=== PATIENT | male | born 2005 | race Caucasian/White ===

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

== ENCOUNTER 2023-09-20 17:10 | Emergency (ER) | payer MEDICAID ==
[~2023-09-20] VITALS: Ht 193 cm; Wt 59.1 kg
[2023-09-20 17:46] LABS: BASOPHILS % (AUTO) 0.8 % (0-1); EOSINOPHILS % (AUTO) 0.7 % (0-6); HEMATOCRIT 45.8 % (42.0-52.0); HEMOGLOBIN 16.3 g/dl (14.0-17.9); LYMPHOCYTES # (AUTO) 1.7 X10'3 (1.1-4.8); LYMPHOCYTES % (AUTO) 26.3 % (21-51); MEAN CORPUSCULAR HEMOGLOBIN 30.7 PG (27.0-31.0); MEAN CORPUSCULAR HGB CONC 35.7 g/dL (33.0-36.5); MEAN CORPUSCULAR VOLUME 86.2 FL (78-98); MEAN PLATELET VOLUME 7.8 FL (7.4-10.4); MONOCYTES # (AUTO) 0.5 X10'3 (0-0.9); MONOCYTES % (AUTO) 8.4 % (2-12); NEUTROPHILS # (AUTO) 4.1 X10'3 (1.8-7.7); NEUTROPHILS % (AUTO) 63.8 % (42-75); PLATELET COUNT 252 X10'3 (140-440); RED BLOOD COUNT 5.31 X10'6 (4.70-6.10); RED CELL DISTRIBUTION WIDTH 12.7 % (11.5-14.5); WHITE BLOOD COUNT 6.4 X10'3 (4.5-11.0)
[2023-09-20 18:11] LABS: ALBUMIN 3.9 G/DL (3.4-5.0); ANION GAP 13 (8-16); BLOOD UREA NITROGEN 10 MG/DL (7-18); BUN/CREATININE RATIO 10.1 (10.0-20.0); CALCIUM 9.1 MG/DL (8.5-10.1); CHLORIDE 106 MMOL/L (99-107); CREATININE 0.99 MG/DL (0.60-1.10); GLUCOSE 93 MG/DL (70-104); POTASSIUM 3.3 MMOL/L (3.5-5.1); PRO BRAIN NATRIURETIC PEPTIDE < 30 PG/ML (0-125); SODIUM 140 MMOL/L (135-145); TOTAL CARBON DIOXIDE 21.2 MMOL/L (24-32); eCRCL 99 ML/MIN; eGFR > 90 ML/MIN
[2023-09-20 18:38] VITALS: BP 107/84; PULSE 95; RESP 18; TEMP 98.6; O2SAT 94
== END 2023-09-20 18:40 | disposition home or self-care (01) ==
LOC: ER 17:11
DX: R00.2 Palpitations (principal); F12.90 Cannabis use, unspecified, uncomplicated; Z88.0 Allergy status to penicillin; Z88.8 Allergy status to other drugs, medicaments and biological substances; Z79.899 Other long term (current) drug therapy; Z79.2 Long term (current) use of antibiotics; Z79.1 Long term (current) use of non-steroidal anti-inflammatories (NSAID); Z72.89 Other problems related to lifestyle
CPT/HCPCS: 71045; 80048; 83880; 84484; 85025; 93005; 99285

== ENCOUNTER 2023-11-13 16:59 | Emergency (ER) | payer MEDICAID ==
[~2023-11-13] VITALS: Ht 190.5 cm; Wt 59.1 kg
[2023-11-13 17:35] LABS: BASOPHILS % (AUTO) 0.7 % (0-1); EOSINOPHILS # (AUTO) 0.1 X10'3 (0-0.9); EOSINOPHILS % (AUTO) 0.9 % (0-6); HEMOGLOBIN 16.5 g/dl (14.0-17.9); LYMPHOCYTES # (AUTO) 2.6 X10'3 (1.1-4.8); LYMPHOCYTES % (AUTO) 42.9 % (21-51); MEAN CORPUSCULAR HEMOGLOBIN 30.3 PG (27.0-31.0); MEAN CORPUSCULAR HGB CONC 34.5 g/dL (33.0-36.5); MEAN CORPUSCULAR VOLUME 87.8 FL (78-98); MEAN PLATELET VOLUME 8.4 FL (7.4-10.4); MONOCYTES # (AUTO) 0.6 X10'3 (0-0.9); MONOCYTES % (AUTO) 9.8 % (2-12); NEUTROPHILS # (AUTO) 2.7 X10'3 (1.8-7.7); NEUTROPHILS % (AUTO) 45.7 % (42-75); PLATELET COUNT 270 X10'3 (140-440); RED BLOOD COUNT 5.47 X10'6 (4.70-6.10); RED CELL DISTRIBUTION WIDTH 12.5 % (11.5-14.5)
[2023-11-13 17:59] LABS: ALBUMIN 4.2 G/DL (3.4-5.0); ANION GAP 11 (8-16); BLOOD UREA NITROGEN 7 MG/DL (7-18); BUN/CREATININE RATIO 7.8 (10.0-20.0); CHLORIDE 105 MMOL/L (99-107); GLUCOSE 90 MG/DL (70-104); POTASSIUM 3.5 MMOL/L (3.5-5.1); PRO BRAIN NATRIURETIC PEPTIDE < 30 PG/ML (0-125); SODIUM 140 MMOL/L (135-145); eCRCL 109 ML/MIN; eGFR > 90 ML/MIN
[2023-11-13] MEDS: LORazepam 1 MG tablet PO ONE (18:17)
[2023-11-13 18:27] VITALS: PULSE 88
[2023-11-13 19:12] VITALS: BP 106/89; RESP 15; TEMP 97.3; O2SAT 99
== END 2023-11-13 19:17 | disposition home or self-care (01) ==
LOC: ER 16:59
DX: R00.2 Palpitations (principal); R07.89 Other chest pain; F41.9 Anxiety disorder, unspecified; F12.90 Cannabis use, unspecified, uncomplicated; Z88.6 Allergy status to analgesic agent; Z88.0 Allergy status to penicillin; Z79.2 Long term (current) use of antibiotics; Z79.1 Long term (current) use of non-steroidal anti-inflammatories (NSAID); Z79.899 Other long term (current) drug therapy
CPT/HCPCS: 36415; 71045; 80048; 83880; 84484; 85025; 93005; 99285; J7030

== ENCOUNTER 2024-11-08 12:39 | Emergency (ER) | payer MEDICAID ==
[~2024-11-08] VITALS: Ht 193 cm; Wt 63.7 kg
[2024-11-08 14:09] LABS: MEAN PLATELET VOLUME 7.4 FL (7.4-10.4); RED CELL DISTRIBUTION WIDTH 13.4 % (11.5-14.5)
[2024-11-08 14:13] LABS: CREATININE 0.85 MG/DL (0.60-1.10); TOTAL CARBON DIOXIDE 25.9 MMOL/L (24-32); eCRCL 124 ML/MIN; eGFR > 90 ML/MIN
[2024-11-08] MEDS: normal saline 1000ml 1,000 ML IV STA (15:51)
[2024-11-08] MEDS: diazepam inj 5 MG/ML inj. IV STA (15:51)
[2024-11-08] MEDS ORDERED: CHLO25CA10 PO (16:47)
--- NOTE | 2024-11-08 16:49 | Physician Documentation ---
History of Present Illness ~ Chief Complaint: ETOH Withdrawl Stated Complaint: ALCOHOL WITHDRAWAL Time Seen by MD: 13:57 Primary Medical Doctor: NONE Mode of Arrival: POV, Ambulatory HPI Patient is seen today with complaints of alcohol withdrawal stating his last drink was yesterday. Patient states he drinks about a pt of vodka daily and has been trying to taper down over the last few days. Patient presents today complaining of shaking as well as significant amount of sensation of anxiety in his chest. Patient denies any seizures or seizure history. He states he has been nauseous and vomiting and has no other concern or complaint at this time. Tetanus within 5 years?: Yes Medication Reconciliation Allergies: Coded Allergies: acetaminophen (Verified Allergy, Intermediate, "fever goes up", 11/13/23) Penicillins (Verified Allergy, Unknown, 11/13/23) Scheduled Cephalexin Monohydrate* (Keflex*), 500 MG PO BID Fluticasone Propionate (Flonase), 16 GM NS BID Ibuprofen 100MG/5ML Susp* (Motrin 100 MG/5ML Susp.*), 15 ML PO Q6H Ondansetron Hcl (Zofran), 1 TAB PO Q6H Scheduled PRN Chlordiazepoxide Hcl (Librium), 2 CAP PO Q4H PRN for anxiety Lorazepam (Ativan), 1 TAB PO Q8H PRN for for anxiety/agitation Past Medical History Past Medical History: No Pertinent History Past Surgical History: no surgical history Smoking Status: Current every day smoker Alcohol Use: Occasionally Drug Use: marijuana Lives with: Family Lives In: Home Occupation: child Review of Systems Constitutional: Denies: chills, fever, weakness Eyes: Denies: pain, blurred vision ENT: Denies: ear pain, nose pain, throat pain, mouth pain Respiratory: Denies: cough, shortness of breath Cardiovascular: Denies: chest pain, palpitations Gastrointestinal: Denies: abdominal pain, nausea, vomiting Genitourinary: Denies: burning, dysuria Male Genitalia: Denies: penile discharge, testicular pain Neurological: Denies: headache, dizziness Musculoskeletal: Denies: pain, swelling Integumentary: Denies: rash, lesions Allergic/Immunologic: Denies: hives, itching Hematologic/Lymphatic: Denies: no symptoms reported Psychiatric: Denies: depression, anxiety Physical Exam Vital Signs: Temperature: 97.6, Source: Oral, Heart Rate: 96, Respiratory Rate: 16, BP: 119/66, Pulse Oximetry: 96, Weight: 63.700 Oxygen Flow Rate: 0 Physical Exam General: Awake and Alert, no acute distress. Patient does have resting tremor. HEENT: Conjunctiva pink, Sclera clear, Mucus Membranes moist. Neck: Supple without masses and tenderness. Resp: Unlabored. Lungs clear to auscultation bilaterally. Heart: Regular Rate and rhythm, normal S1 and S2 without murmur, rub or gallop. Abdomen: Soft and non tender no organomegaly Extremities: No cyanosis,clubbing or edema. Skin: Warm and Dry. Progress Results/Orders Results/Orders Orders - PABLO PEREZ PAC Saline Lock (11/08/24 ) Completed Orders - PABLO PEREZ PAC Ethanol (11/08/24 14:21) Normal Saline 1000ml (0.9% Sodium Chlori (11/08/24 14:29) Diazepam Inj (Valium Inj) (11/08/24 14:29) Prochlorperazine Inj (Compazine Inj) (11/08/24 14:29) Medications Received in ER Medications (Trade) Dose Ordered Sig/Tae Route PRN Reason Start Time Stop Time Status Last Admin Dose Admin Sodium Chloride 1,000 ml @ 1,000 mls/hr ONCE STAT IV 11/08/24 14:29 11/08/24 15:28 DC 11/08/24 15:51 1,000 MLS/HR (Valium inj) 10 mg ONCE STAT IV 11/08/24 14:29 11/08/24 14:43 DC 11/08/24 15:51 10 MG (Compazine inj) 10 mg ONCE STAT IV 11/08/24 14:29 11/08/24 14:43 DC 11/08/24 15:51 10 MG Vital Signs 11/08/24 11/08/24 11/08/24 11/08/24 13:01 14:55 15:14 16:56 Temp 97.6 97.6 Pulse 97 96 96 Resp 18 16 16 16 B/P (MAP) 119/66 145/99 (114) Pulse Ox 97 96 94 O2 Flow Rate 0 0 11/08/24 17:05 Temp 97.6 B/P (MAP) Laboratory Tests Test 11/08/24 13:16 White Blood Count 10.5 Red Blood Count 4.96 Hemoglobin 16.6 Hematocrit 47.0 Mean Corpuscular Volume 94.7 Mean Corpuscular Hemoglobin 33.5 H Mean Corpuscular Hemoglobin Concent 35.4 Red Cell Distribution Width 13.4 Platelet Count 280 Mean Platelet Volume 7.4 Neutrophils (%) (Auto) 80.3 H Lymphocytes (%) (Auto) 9.1 L Monocytes (%) (Auto) 9.9 Eosinophils (%) (Auto) 0.1 Basophils (%) (Auto) 0.6 Neutrophils # (Auto) 8.4 H Lymphocytes # (Auto) 1.0 L Monocytes # (Auto) 1.0 H Eosinophils # (Auto) 0.0 Basophils # (Auto) 0.1 CBC Comment Sodium Level 139 Potassium Level 3.7 Chloride Level 103 Carbon Dioxide Level 25.9 Anion Gap 10 Blood Urea Nitrogen 6 L Creatinine 0.85 Estimated GFR/1.73 m2 > 90 BUN/Creatinine Ratio 7.1 L Glucose Level 89 Calcium Level 9.1 Total Bilirubin 2.0 H Aspartate Amino Transf (AST/SGOT) 99 H Alanine Aminotransferase (ALT/SGPT) 158 H Alkaline Phosphatase 103 Total Protein 7.8 Albumin 4.4 Globulin 3.4 Albumin/Globulin Ratio 1.3 Lipase 25 Chemistry Comments Ethyl Alcohol Level < 10 Medical Decision Making Findings Patient is seen today with complaints of alcohol withdrawal stating his last drink was yesterday. Patient states he drinks about a pt of vodka daily and has been trying to taper down over the last few days. Patient presents today complaining of shaking as well as significant amount of sensation of anxiety in his chest. Patient denies any seizures or seizure history. He states he has been nauseous and vomiting and has no other concern or complaint at this time. Patient was given L of fluid IV, Compazine 10 mg IV, Valium 10 mg IV and patient states he is feeling quite a bit better. Patient declines admission at this time. Patient was given prescription for Librium taper to be taken as directed. Patient will follow up with primary care in 3-5 days if no better as needed sooner. Return to ED with any worsening, concerning or changing symptoms. I strongly advised patient begin 12 step program and or intensive outpatient or inpatient rehabilitation program. Departure Disposition: HOME / SELF CARE / HOMELESS Impression: Primary Impression: Alcohol withdrawal syndrome Qualified Codes: F10.930 - Alcohol use, unspecified with withdrawal, uncomplicated Condition: Improved Discharge Instructions: Delirium Tremens, [id number] Additional Instructions: Patient was given L of fluid IV, Compazine 10 mg IV, Valium 10 mg IV and patient states he is feeling quite a bit better. Patient declines admission at this time. Patient was given prescription for Librium taper to be taken as directed. Patient will follow up with primary care in 3-5 days if no better as needed sooner. Return to ED with any worsening, concerning or changing symptoms. I strongly advised patient begin 12 step program and or intensive outpatient or inpatient rehabilitation program. Referrals: NO PRIMARY CARE PROVIDER (PCP) Prescriptions Chlordiazepoxide Hcl (Librium) 25 Mg Capsule 2 CAP PO Q4H PRN for anxiety for 5 Days, #24 CAP 0 Refills Prov: PABLO PEREZ PAC 11/08/24 Chlordiazepoxide Hcl (Librium) 25 Mg Capsule 2 CAP PO Q4H PRN for anxiety for 5 Days, #24 CAP 0 Refills Prov: PABLO PEREZ 11/08/24 Additional Comment Additional Comment Patient refused admission at this time. Signature Scribe Signature: No scribe Attestation: No scribe PABLO PEREZ PAC Nov 08, 2024 16:49
[2024-11-08 16:56] VITALS: BP 145/99; PULSE 96; RESP 16; O2SAT 94
[2024-11-08 17:05] VITALS: TEMP 97.6
== END 2024-11-08 17:06 | disposition home or self-care (01) ==
LOC: ER 12:39
DX: F10.239 Alcohol dependence with withdrawal, unspecified (principal); F12.90 Cannabis use, unspecified, uncomplicated; F17.200 Nicotine dependence, unspecified, uncomplicated; Z88.0 Allergy status to penicillin; Z88.8 Allergy status to other drugs, medicaments and biological substances; Y90.9 Presence of alcohol in blood, level not specified
CPT/HCPCS: 36415; 80053; 80320; 83690; 85025; 96374; 96375; 99284; J0780; J3360; J7030

== ENCOUNTER 2025-03-04 07:22 | Inpatient (IN) | payer MEDICAID ==
[~2025-03-04] VITALS: Ht 193 cm; Wt 56.8 kg
[~2025-03-04 07:22] MED LIST changes: +CHLO25CA10 PO
--- NOTE | 2025-03-04 07:49 | Physician Documentation ---
History of Present Illness ~ Chief Complaint: ETOH Withdrawl Stated Complaint: ALCOHOL WITHDRAWAL Time Seen by MD: 07:36 Primary Medical Doctor: NONE HPI Patient is seen today with complaints of alcohol withdrawal stating his last drink was about 1:00 a.m. this morning. Patient states he drinks about a pt of distilled spirits daily. Patient presents today complaining of shaking as well as significant amount of sensation of anxiety in his chest. Patient denies any seizures or seizure history. He states he has been nauseous and vomited yesterday and has no other concern or complaint at this time. Tetanus within 5 years?: Yes Medication Reconciliation Allergies: Coded Allergies: acetaminophen (Verified Allergy, Intermediate, "fever goes up", 03/04/25) Penicillins (Verified Allergy, Unknown, 03/04/25) Uncoded Allergies: SULFA (Allergy, Unknown, 03/04/25) Scheduled Cephalexin Monohydrate* (Keflex*), 500 MG PO BID Fluticasone Propionate (Flonase), 16 GM NS BID Ibuprofen 100MG/5ML Susp* (Motrin 100 MG/5ML Susp.*), 15 ML PO Q6H Ondansetron Hcl (Zofran), 1 TAB PO Q6H Scheduled PRN Chlordiazepoxide Hcl (Librium), 2 CAP PO Q4H PRN for anxiety Chlordiazepoxide Hcl (Librium), 2 CAP PO Q4H PRN for anxiety Lorazepam (Ativan), 1 TAB PO Q8H PRN for for anxiety/agitation Past Medical History Past Medical History: No Pertinent History Past Surgical History: no surgical history Alcohol Use: Occasionally Drug Use: marijuana Lives with: Family Lives In: Home Occupation: child Review of Systems ROS Constitutional: Anxiety, shaking, diaphoresis. HEENT: Denies hearing loss, sinus pressure or visual changes. Respiratory: Denies cough, shortness of breath or wheezing. Cardiovascular: Denies chest pain, pain while walking (claudication), edema or palpitations. Gastrointestinal: Denies abdominal pain, blood in stool, constipation, diarrhea, heartburn, loss of appetite, nausea or vomiting. Genitourinary: Denies painful urination (dysuria), excessive amount of urine (polyuria) or urinary frequency. Metabolic/Endocrine: Denies cold intolerance, heat intolerance, excessive thirst (polydipsia) or excessive hunger (polyphagia). Neurological: Denies dizziness, extremity numbness, extremity weakness, headaches, seizures or tremors. Psychiatric: Anxiety and depression. Integumentary: Denies breast discharge, breast lump, hives, mole change(s), rash or skin lesion. Musculoskeletal: Denies back pain, joint pain, joint swelling or neck pain. Hematologic: Denies easily bleeding, easily bruises, lymphedema or issues with blood clots. Immunologic: Denies food allergies or seasonal allergies. Physical Exam Vital Signs: Temperature: 99.2, Source: Oral, Heart Rate: 96, Respiratory Rate: 17, BP: 127/93, Weight: 62.000 Physical Exam Physical Exam Vitals and nursing note reviewed. Constitutional: General: Patient is awake, alert, oriented x 4. CIWA 17. Appearance: Tremulous, diaphoretic. HENT: Head: Normocephalic and atraumatic. Mouth/Throat: Mouth: Mucous membranes are moist. Pharynx: Oropharynx is clear. Eyes: General: No scleral icterus. Extraocular Movements: Extraocular movements intact. Pupils: Pupils are equal, round, and reactive to light. Neck: Supple, no Kernig or Brudzinski sign. Cardiovascular: Rate and Rhythm: Normal rate and regular rhythm. Heart sounds: No murmur heard. Pulmonary: Effort: No respiratory distress. Breath sounds: No wheezing, rhonchi or rales. Abdominal: General: There is no distension. Palpations: There is no fluid wave, hepatomegaly or mass. Tenderness: There is no abdominal tenderness. There is no guarding. Musculoskeletal: General: No swelling or deformity. Skin: Coloration: Skin is not jaundiced. Findings: No erythema or rash. Neurological: Mental Status: Patient is alert. Progress Results/Orders Results/Orders Orders - GEORGE JO MD Drug Screen, Urine (03/04/25 07:47) Electrocardiogram (03/04/25 ) Regular Diet (03/04/25 Lunch) Page Hospitalist (03/04/25 11:12) Completed Orders - GEORGE JO MD Electrocardiogram (03/04/25 07:28) Cbc/Diff (03/04/25 07:47) CMP (03/04/25 07:47) Ethanol (03/04/25 07:47) Lipase (03/04/25 07:47) LA (03/04/25 07:47) MG (03/04/25 07:47) Pt Inr (03/04/25 07:47) Normal Saline 1000ml (0.9% Sodium Chlori (03/04/25 07:50) Diazepam Inj (Valium Inj) (03/04/25 07:50) Prochlorperazine Inj (Compazine Inj) (03/04/25 07:50) Phenobarbital Inj (Phenobarbital Inj.) (03/04/25 09:25) Normal Saline 1000ml (0.9% Sodium Chlori (03/04/25 09:25) Phenobarbital Inj (Phenobarbital Inj.) (03/04/25 09:35) Diazepam Inj (Valium Inj) (03/04/25 10:55) Nicotine 14mg Patch-24hr (Habitrol Patch (03/04/25 10:55) Medications Received in ER Medications (Trade) Dose Ordered Sig/Tae Route PRN Reason Start Time Stop Time Status Last Admin Dose Admin Sodium Chloride 1,000 ml @ 1,000 mls/hr ONCE ONCE IV 03/04/25 07:50 03/04/25 08:49 DC 03/04/25 08:05 1,000 MLS/HR (Valium inj) 10 mg ONCE ONCE IV 03/04/25 07:50 03/04/25 08:01 DC 03/04/25 08:07 10 MG (Compazine inj) 10 mg ONCE ONCE IV 03/04/25 07:50 03/04/25 08:01 DC 03/04/25 08:05 10 MG Sodium Chloride 1,000 ml @ 1,000 mls/hr ONCE ONCE IV 03/04/25 09:25 03/04/25 10:24 DC 03/04/25 09:30 1,000 MLS/HR (phenoBARBITAL inj.) 260 mg ONCE ONCE IV 03/04/25 09:35 03/04/25 09:36 DC 03/04/25 09:44 260 MG (Valium inj) 5 mg ONCE ONCE IV 03/04/25 10:55 03/04/25 10:56 DC 03/04/25 11:08 5 MG (Habitrol patch) 1 patch ONCE ONCE TD 03/04/25 10:55 03/04/25 10:56 DC 03/04/25 11:08 1 PATCH Vital Signs 03/04/25 03/04/25 03/04/25 03/04/25 07:22 07:52 08:07 08:10 Temp 99.2 Pulse 96 106 Resp 17 17 16 14 B/P (MAP) 127/93 132/76 (94) Pulse Ox 96 03/04/25 03/04/25 03/04/25 10:05 11:08 11:16 Pulse 83 93 Resp 20 15 14 B/P (MAP) 132/90 (104) 130/81 (97) Pulse Ox 99 96 O2 Flow Rate 0 Laboratory Tests Test 03/04/25 07:32 03/04/25 10:45 White Blood Count 7.4 Red Blood Count 5.22 Hemoglobin 16.5 Hematocrit 47.0 Mean Corpuscular Volume 90.0 Mean Corpuscular Hemoglobin 31.5 H Mean Corpuscular Hemoglobin Concent 35.0 Red Cell Distribution Width 12.3 Platelet Count 260 Mean Platelet Volume 8.4 Neutrophils (%) (Auto) 57.2 Lymphocytes (%) (Auto) 28.7 Monocytes (%) (Auto) 11.5 Eosinophils (%) (Auto) 1.4 Basophils (%) (Auto) 1.2 H Neutrophils # (Auto) 4.3 Lymphocytes # (Auto) 2.1 Monocytes # (Auto) 0.9 Eosinophils # (Auto) 0.1 Basophils # (Auto) 0.1 CBC Comment Prothrombin Time 11.4 INR International Normalized Ratio 1.1 Coagulation Comments Sodium Level 139 Potassium Level 3.3 L Chloride Level 100 Carbon Dioxide Level 26.5 Anion Gap 13 Blood Urea Nitrogen 8 Creatinine 0.77 Estimated GFR/1.73 m2 > 90 BUN/Creatinine Ratio 10.4 Glucose Level 87 Lactic Acid Level 1.5 Calcium Level 8.8 Magnesium Level 1.7 Total Bilirubin 2.6 H Aspartate Amino Transf (AST/SGOT) 42 H Alanine Aminotransferase (ALT/SGPT) 30 Alkaline Phosphatase 85 Total Protein 7.4 Albumin 3.9 Globulin 3.5 Albumin/Globulin Ratio 1.1 Lipase 30 Chemistry Comments Ethyl Alcohol Level < 10 Drug Screen Comment Medical Decision Making 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 He requires more intensive inpatient therapy. Differential Dx:Considerations: Intoxication - ETOH, Intoxication - other drug, Sub. Abuse -continuous, Sub. Abuse-intermittent, Other; Unlikely: Skull fracture, Fracture - other bone, Personality disorder, Closed head injury, Cer vical spine injury, Abrasion, Confusion, Hematoma, Laceration, Foreign body, Dehydration, Encephalopathy, Hepatitis, Pancreatitis, Thiamine deficiency Departure Disposition: 09 ADMITTED INPATIENT Admitted to Inpatient Unit: to hospitalist Admission Level of Care: PCU with Tele Impression: Primary Impression: Alcohol withdrawal syndrome Condition: Fair Referrals: NO PRIMARY CARE PROVIDER (PCP) Signature Scribe Signature: . Attestation: . GEORGE JO MD Mar 04, 2025 07:49
[2025-03-04] MEDS: normal saline 1000ml 1,000 ML IV ONE ×2 (08:05→09:30)
[2025-03-04 08:06] LABS: MEAN PLATELET VOLUME 8.4 FL (7.4-10.4); RED CELL DISTRIBUTION WIDTH 12.3 % (11.5-14.5)
[2025-03-04] MEDS: diazepam inj 5 MG/ML inj. IV ONE ×2 (08:07→11:08)
[2025-03-04 08:15] LABS: INR 1.1 INR
[2025-03-04 08:23] LABS: CREATININE 0.77 MG/DL (0.60-1.10); ETHANOL < 10 MG/DL (<10); TOTAL CARBON DIOXIDE 26.5 MMOL/L (24-32); eCRCL 133 ML/MIN; eGFR > 90 ML/MIN
--- NOTE | 2025-03-04 08:33 | ELECTROCARDIOGRAPH REPORT ---
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 CAMI Casiano Measurements Intervals [place] Rate: 103 P: 78 [place]: 112 QRS: 87 QRSD: 86 T: 16 QT: 323 QTc: 423 Interpretive Statements Sinus tachycardia Right atrial enlargement Minimal ST depression, inferior leads Electronically Signed On 03-05-2025 13:08:[address] CAMI Casiano Please click the below link to view image of tracing.
[2025-03-04] MEDS: nicotine 14mg patch - 24hr TD ONE (11:08)
[2025-03-04 11:30] LABS: URINE AMPHETAMINE SCREEN NEGATIVE (Neg); URINE BARBITUATE SCREEN POSITIVE (Neg); URINE BENZODIAZEPINES SCREEN POSITIVE (Neg); URINE CANNABINOID SCREEN NEGATIVE (Neg); URINE COCAINE SCREEN NEGATIVE (Neg); URINE METHADONE SCREEN NEGATIVE (Neg); URINE OPIATE SCREEN NEGATIVE (Neg); URINE PHENCYCLIDINE SCREEN NEGATIVE (Neg)
[2025-03-04] MEDS ORDERED: magnesium sulf-water 4G/100mL 100 ML IV PRN (12:20)
[2025-03-04] MEDS ORDERED: potassium Cl 20 mEq SR tablet PO PRN ×2 (12:20)
[2025-03-04] MEDS ORDERED: magnesium Cl slow-release 64mg tablet PO PRN (12:20)
[2025-03-04] MEDS ORDERED: ondansetron/PF 4mg/2ml inj IV PRN (12:20)
[2025-03-04] MEDS ORDERED: magnesium sulf-water 2g/50mL 50 ML IV PRN (12:20)
--- NOTE | 2025-03-04 12:35 | HISTORY AND PHYSICAL ---
History & Physical Providers to CC ~ History of Present Illness Reason for Admit\\Complaint: ALCOHOL WITHDRAWAL History of Present Illness 19 years old male presented to the ER for evaluation of tremors. Patient has a accompanied by his mother who gives most of the history. Mother states that patient has been a heavy drinker, has a anxiety, does not leave the house for the last six years due to severe anxiety, has been drinking a pt of vodka every day for one week. His last drink was 1:00 a.m.. This morning patient was noted to be having tremors and was having palpitations, he has been unable to sleep. Patient is being admitted for alcohol withdrawal syndrome and impending DTs. Patient denies having any fever chills nausea vomiting abdominal pain chest pain dysuria frequency urgency hematuria melena or bright red blood per rectum. Allergies: Coded Allergies: acetaminophen (Verified Allergy, Intermediate, "fever goes up", 03/04/25) Penicillins (Verified Allergy, Unknown, 03/04/25) Uncoded Allergies: SULFA (Allergy, Unknown, 03/04/25) Home Medications Home Medications Active Librium (Chlordiazepoxide Hcl) 25 Mg Capsule 2 Cap PO Q4H PRN 5 Days Librium (Chlordiazepoxide Hcl) 25 Mg Capsule 2 Cap PO Q4H PRN 5 Days Ativan (Lorazepam) 1 Mg Tablet 1 Tab PO Q8H PRN 3 Days Zofran (Ondansetron Hcl) 4 Mg Tablet 1 Tab PO Q6H 5 Days Flonase (Fluticasone Propionate) 16 Gm Udall.susp 16 Gm NS BID Motrin 100 MG/5ML Susp.* (Ibuprofen) 100 Mg/5 Ml Susp 15 Ml PO Q6H TAKE 2 TEASPOONFULS EVERY 6 HOURS NEEDED FOR PAIN. Keflex* (Cephalexin HCl) 500 Mg Capsule 500 Mg PO BID 10 Days Past Medical History Past Medical History None Past Surgical History Surgical History Comment None Family History Family History: Family history was reviewed; no changes noted. Past Social History Social History Comment Drinks a pt of vodka every day, does not smoke, vapes, does not do any other drugs. Health Maintenance Health Maintenance Mother reports that patient is not current on his immunizations. ROS ROS All other systems are reviewed and are negative except as mentioned in HPI Exam Vitals: Vital Signs Date Time Temp Pulse Resp B/P (MAP) Pulse Ox O2 Delivery O2 Flow Rate FiO2 03/04/25 12:19 91 20 113/72 (86) 95 03/04/25 10:05 0 03/04/25 07:22 99.2 General: Awake alert cooperative in no acute distress HEENT: Normocephalic atraumatic pupils round reactive to light and accommodation, extraocular movements intact, sclera anicteric, conjunctiva pinkish, moist oral mucosa, no rash or ulcers. Neck: Supple, no JVD, trachea midline, no lymphadenopathy. Chest: Clear to auscultation, no wheezes crackles or rhonchi. Cardiovascular: Regular rate rhythm, no murmur gallop or rub. Tachycardia noted Abdomen: Soft nontender, no organomegaly. Extremities: No cyanosis clubbing or edema. Central Nervous System: Nonfocal. Moves all four extremities Musculoskeletal: No joint swelling or deformities noted. Skin: No rash or ulcers noted. Diagnostic Data Last Recorded Lab Results: 03/04/25 0732 03/04/25 0732 Diagnostic Data: Laboratory Tests Test 03/04/25 07:32 Prothrombin Time 11.4 SECONDS (9.0-12.0) INR International Normalized Ratio 1.1 INR Coagulation Comments Additional Plan 19 years old male presented to the ER for evaluation of palpitations and tremors after he stopped drinking at 1:00 a.m. today. Patient has been drinking pt of vodka every day for one week # alcohol withdrawal syndrome and impending DTs: We will start him on alcohol withdrawal protocol. Chlordiazepoxide, multivitamins, folate, IV Ativan p.r.n. # major anxiety disorder: Mother states that patient has not been getting out of the house for six years. Consider psych consultation wants DTs resolved #code status: Full code as per my discussion with the patient and his mother. Date of Service: Mar 04, 2025 Billing Provider: GAVIN KULKARNI MD Common Visit Codes: [id number] INP/OBS CARE (MOD) GAVIN KULKARNI MD Mar 04, 2025 12:35
[2025-03-04] MEDS: normal saline 1000ml 1,000 ML IV SCH (12:48)
[2025-03-04 14:35] VITALS: BP 144/87; PULSE 102; RESP 18; TEMP 98.7; O2SAT 98
[2025-03-04] MEDS: potassium Cl 40MEQ/1/2NS 520ml 520 ML IV PRN (17:10)
[2025-03-04 18:00] VITALS: BP 138/86; PULSE 108; RESP 18; TEMP 98.1; O2SAT 98
[2025-03-04] MEDS: K and/or MAG REPLACEMENT MC SCH (19:05)
[2025-03-04 20:00] VITALS: RESP 18; O2SAT 98
[2025-03-04 22:00] VITALS: BP 156/92; PULSE 101; RESP 16; TEMP 98.1; O2SAT 99
[2025-03-05] VITALS (8 sets, daily range): BP systolic 116–144; BP diastolic 77–93; PULSE 88–114; RESP 15–20; TEMP 97.8–98.7; O2SAT 95–100
[2025-03-05 06:42] LABS: MEAN PLATELET VOLUME 8.6 FL (7.4-10.4); RED CELL DISTRIBUTION WIDTH 12.2 % (11.5-14.5)
[2025-03-05 07:28] LABS: CREATININE 0.67 MG/DL (0.60-1.10); TOTAL CARBON DIOXIDE 24.9 MMOL/L (24-32); eCRCL 140 ML/MIN; eGFR > 90 ML/MIN
--- NOTE | 2025-03-05 18:30 | PROGRESS NOTE ---
Daily Progress Note Providers to CC ~ Antibiotic Timeout Antibiotic Ordered?: No Subjective The patient remains tremulous- and has received a total of 5 mg of IV lorazepam in the past 24 hours as well as scheduled 25 mg of Librium. The patient is requesting to be discharged and started to mentioned the plan that occurred in the ER on November 08 however the patient is sent home on Librium as he refused an admission at that time I informed him that I was not comfortable discharging the patient since he is going through shon DTs. Objective Vital Signs Date Time Temp Pulse Resp B/P (MAP) Pulse Ox O2 Delivery O2 Flow Rate FiO2 03/05/25 14:49 20 03/05/25 11:00 98.7 114 144/93 (110) 98 Room Air 03/05/25 09:19 0.0 Result Diagram: 03/05/25 0556 03/05/25 0556 Gen. No acute distress alert and oriented, [id number] generalized tremors Lungs clear to ascultation bilaterally, no wheezes rales or rhonchi appreciated Heart normal sinus rhythm no murmurs rubs or clicks noted Abdomen soft nontender bowel sounds are normoactive Lower extremities no clubbing cyanosis, nor edema appreciated bilaterally Coagulation Studies Laboratory Tests Test 03/04/25 07:32 Prothrombin Time 11.4 SECONDS (9.0-12.0) INR International Normalized Ratio 1.1 INR Coagulation Comments Problem\Assessment\Plan Problems/Diagnosis: (1) Alcohol withdrawal syndrome 19 years old male presented to the ER for evaluation of palpitations and tremors after he stopped drinking at 1:00 a.m. today. Patient has been drinking pt of vodka every day for one week. Note that the patient has a an ED visit on November 08, 2024 for alcohol withdrawal symptoms and was given a prescription of Librium. # alcohol withdrawal syndrome- with the impending DTs On CIWA protocol PRN IV lorazepam Scheduled p.o. Librium Substance use navigator Alva Adamson consult is ordered # major anxiety disorder: Mother informed Dr. King that patient has not been getting out of the house for six years. Consider psych consultation. 03/05 a discussion with the patient's mother to find out how the patient is obtaining alcohol. Date of Service: Mar 05, 2025 Billing Provider: TUAN BATRES DO Common Visit Codes: [id number] INP/OBS CARE(HIGH) TUAN BATRES DO Mar 05, 2025 18:30
--- NOTE | 2025-03-05 20:57 | ELECTROCARDIOGRAPH REPORT ---
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 CAMI Casiano Measurements Intervals [place] Rate: 145 P: 14 MA: 108 QRS: 129 QRSD: 87 T: 0 QT: 281 QTc: 437 Interpretive Statements Sinus tachycardia Right axis deviation Borderline T abnormalities, inferior leads Electronically Signed On 03-07-2025 18:39:[address] CAMI Casiano Please click the below link to view image of tracing.
[2025-03-06] MEDS: nicotine 14mg patch - 24hr TD ONE (01:27)
[2025-03-06 02:00] VITALS: BP 121/82; PULSE 111; RESP 19; TEMP 98.2; O2SAT 99
[2025-03-06 06:00] VITALS: BP 149/84; PULSE 94; RESP 14; TEMP 97.3; O2SAT 99
[2025-03-06 06:13] LABS: MEAN PLATELET VOLUME 7.9 FL (7.4-10.4); RED CELL DISTRIBUTION WIDTH 12.2 % (11.5-14.5)
[2025-03-06 06:39] LABS: CREATININE 0.55 MG/DL (0.60-1.10); TOTAL CARBON DIOXIDE 25.1 MMOL/L (24-32); eCRCL 171 ML/MIN; eGFR > 90 ML/MIN
[2025-03-06 08:00] VITALS: RESP 14; O2SAT 92
--- NOTE | 2025-03-06 12:22 | DISCHARGE SUMMARY ---
Discharge Summary Providers to CC ~ Discharge Summary Admission Diagnosis: DT , CHRONIC ALCOHOLISM , ANXIETY DISORDER Hospital Course DATE OF ADMISSION: 03/04/2025 DATE OF DISCHARGE: 03/06/2025 Discharge Diagnosis\Comment: EtOH abuse benzos and barbs abuse DTs Operations\Procedures: None Consultants: Substance abuse navigator Complications: None Condition on DC: Stable Discharge Summary: History of Present Illness 19 years old male presented to the ER for evaluation of tremors. Patient has a accompanied by his mother who gives most of the history. Mother states that patient has been a heavy drinker, has a anxiety, does not leave the house for the last six years due to severe anxiety, has been drinking a pt of vodka every day for one week. His last drink was 1:00 a.m.. This morning patient was noted to be having tremors and was having palpitations, he has been unable to sleep. Patient is being admitted for alcohol withdrawal syndrome and impending DTs. Patient denies having any fever chills nausea vomiting abdominal pain chest pain dysuria frequency urgency hematuria melena or bright red blood per rectum. Patient left AMA prior to workup being complete *Problems/Diagnosis: (1) Alcohol withdrawal syndrome Status: Acute Total Time Spent on D/C: > 30 Minutes Date of Service: Mar 06, 2025 Billing Provider: LAKESHIA ZHONG MD Common Visit Codes: 55264-KTH/OBS DISCH DAY >30min LAKESHIA ZHONG MD Mar 06, 2025 12:22
== END 2025-03-06 10:24 | disposition left against medical advice (07) | DRG 770 ==
LOC: ER 07:22 → ED HOLD 12:21 → PCU 3S 14:01
PROVIDERS: ADMIT Internal Medicine; ATTEND Internal Medicine
DX: F10.131 Alcohol abuse with withdrawal delirium (principal); F13.10 Sedative, hypnotic or anxiolytic abuse, uncomplicated; F41.9 Anxiety disorder, unspecified; Z53.29 Procedure and treatment not carried out because of patient's decision for other reasons; Y90.0 Blood alcohol level of less than 20 mg/100 ml; Z88.0 Allergy status to penicillin; Z88.2 Allergy status to sulfonamides; Z88.6 Allergy status to analgesic agent
CPT/HCPCS: 36415; 80048; 80053; 80305; 80320; 83605; 83690; 83735; 85025; 85610; 87081; 93005; 99285; G0378; J0780; J2060; J2560; J3360; J3480; J7030